=== PATIENT | male | born 1975 | race Caucasian/White ===

== ENCOUNTER 2023-09-27 06:17 | Day surgery (SDC) | payer OTHER, SELFPAY ==
[2023-09-27] VITALS (8 sets, daily range): BP systolic 114–147; BP diastolic 62–110; BMI 28.4
[2023-09-27] MEDS: NORMOSOL-R 1000 IV (06:32)
[2023-09-27] MEDS: TYLENOL 1000 MG PO (06:33)
--- NOTE | 2023-09-27 07:05 | HP.FOC2 ---
Focused History & Physical
Chief Complaint
HPI:
Chief Complaint: Upper back lipoma
HPI / Indication for Planned Procedure: Patient is a 48-year-old male who has had a history of progressive swelling along the upper central back/lower neck area. Continue to enlarge in size and presents today for scheduled operative excision of his
presumed large lipomatous mass.
Relevant Past Medical History: Negative (Patient denies any active or significant medical history)
Relevant Social History: Negative
Relevant Family History: Negative
Relevant Past Surgical History: Positive for (Previous removal of lower scapular area lipoma)
Review of Systems
Review of Pertinent Systems: All Systems Negative
Medication
See Medication form for detailed medications: Yes
Medication List (including Herbals & OTC):
ibuprofen 400 mg tablet 400 mg PO Q8H PRN pain 09/24/23
Medications Reviewed: Yes
Allergies and Reactions
Patient has Allergies: No
Noted Allergies and Reactions:
Allergy/AdvReac Type Severity Reaction Status Date / Time
No Known Allergies Allergy Verified 09/27/23 06:20
Pertinent Physical Exam
All Other Systems: Negative
Head/Neck: Normal
Lungs: Normal
Heart: Normal
Abdomen: Normal
Extremities: Normal
Neurological: Normal
Other: Central upper back large mobile lipomatous mass
Diagnosis / Assessment
48-year-old male with a longstanding history of a large lipomatous mass in the upper central back presenting for scheduled excision
Plan / Procedure
Excision upper central back lipoma
Anesthesia/Sedation to be done by Anesthesia Provider: Yes
--- NOTE | 2023-09-27 07:08 | W.SUR.PREOP ---
Pre-Operative Surgical Note
-
I have examined this patient prior to the performance of the scheduled procedure.
The patient's condition is unchanged from the time of the current History and
Physical and the patient is able to undergo the scheduled procedure.
--- NOTE | 2023-09-27 09:18 | W.IMMPOSTOP ---
Addendum entered and electronically signed by Musa Olivera MD 09/27/23 09:29:
#[id number]
Original Note:
Surgical Immed Post Op Note
-
Primary Surgeon: Joselin
Assisting Surgeon: Patsy FREEMAN
Pre-op Diagnosis: Upper back subcutaneous lipoma
Post-op Diagnosis: Upper back subcutaneous lipoma -13 cm x 8.5 cm
Procedure Performed: Excision upper back subcutaneous lipoma with intermediate repair (13cm x 8.5cm)
Anesthesia Type: GETA +1% lidocaine mixed with 0.25% Marcaine epinephrine
Specimen / Cultures: Lipomatous mass (single short superior; double long anterior; single long right lateral)
Estimated Blood Loss: 8 mL
Complications: None immediate
Operative Findings: Large subcutaneous lipomatous/fibrous mass 13 cm x 8.5 cm excised in its entirety. Multilayer intermediate repair/closure (2-0 Vicryl deep Yan; 3-0 Vicryl subdermal; 4-0 Monocryl subcuticular closure)
== END 2023-09-27 10:42 | disposition home or self-care (01) ==
LOC: SDS 06:17
PROVIDERS: ATTENDING PHYSICIAN Surgery
DX: D17.1 Benign lipomatous neoplasm of skin and subcutaneous tissue of trunk (principal)
CPT/HCPCS: 21931; 88304